=== PATIENT | female | born 1985 ===

== ENCOUNTER 2016-02-29 21:35 | Emergency (ER) | payer SELFPAY ==
[2016-02-29] MEDS ORDERED: IOPAMIDOL 370 (76%) 100 ML VIAL IV ONE (21:36)
[2016-02-29 22:12] LABS: SPECIFIC GRAVITY 1.015 (1.001-1.030); URINE BILIRUBIN NEGATIVE (NEGATIVE); URINE BLOOD TRACE (NEGATIVE); URINE COLOR LIGHT YELLOW; URINE GLUCOSE (UA) NEGATIVE (NEGATIVE); URINE LEUKOCYTE ESTERASE TRACE (NEGATIVE); URINE NITRITE NEGATIVE (NEGATIVE); URINE PROTEIN NEGATIVE (NEGATIVE); URINE UROBILINOGEN NORMAL (0-1 mg/dl)
[2016-02-29 22:13] LABS: URINE APPEARANCE HAZY
[2016-02-29 22:14] LABS: HCG,QUALITATIVE URINE NEGATIVE
[2016-02-29 22:20] LABS: URINE RBC 0-1 /hpf
[2016-02-29 22:21] LABS: URINE BACTERIA FEW
[2016-02-29 22:30] LABS: ABSOLUTE NEUTROPHIL COUNT 3.9 K/mm3 (1.8-7.7); BASO # 0.1 K/mm3 (0.0-0.2); BASO % 0.5 % (0.2-1.0); EOS # 0.2 (0.0-0.5); EOS % 2.6 % (0.9-2.9); HEMATOCRIT 37.5 % (37.0-47.0); HEMOGLOBIN 12.4 gm/l (12.0-16.0); IMM NEUT% 0.2 % (0-1); LYMPH # 4.6 (1.0-4.8); LYMPH % 49.7 % (15-45); MEAN CELL VOLUME 89.7 fl (81.0-99.0); MEAN CORPUSCULAR HEMOGLOBIN 29.7 pg (27.0-31.0); MEAN CORPUSCULAR HGB CONC 33.1 g/dl (33.0-37.0); MEAN PLATELET VOLUME 10.2 fl (7.4-10.4); MONO # 0.5 (0.0-0.8); MONO % 4.8 % (4-12); NEUT % 42.2 % (43-75); PLATELET COUNT 280 K/mm3 (130-400)
[2016-02-29 22:52] LABS: ALB/GLOB RATIO 1.3 (>1.0); ALBUMIN 4.3 gm/dL (3.5-5.7); CALCIUM 9.2 mg/dL (8.6-10.3)
--- NOTE | 2016-03-01 08:30 | CT ---
CT ABDOMEN AND PELVIS WITH CONTRAST HISTORY: Abdominal pain x15 days. TECHNIQUE: Following intravenous administration of 100cc of Isovue-370, contiguous axial images were acquired from the lung bases to the ischial tuberosities. Oral contrast was not administered. COMPARISON:None. FINDINGS: LUNG BASES: Minor atelectatic change. No airspace consolidation or pleural effusion. LIVER: No focal lesion. SPLEEN: No focal lesion. PANCREAS: No focal lesion. ADRENAL GLANDS: No mass effect. KIDNEYS: No focal lesion. No collecting system dilatation. GALLBLADDER: Present. BOWEL: . Bowel malrotation, small bowel seen on the right side of the abdomen with the cecum at the left lower quadrant. There is moderate colonic fecal loading. Limited evaluation of portions of the colon due to decompression. No abnormal small bowel dilatation. APPENDIX: Normal gas-filled appendix. PELVIC ORGANS: No gross mass effect. Prominence of the left ovarian vein asymmetric prominence of left-sided vasculature. FREE FLUID: No gross free fluid identified. ABDOMINOPELVIC LYMPH NODES: A few perigastric lymph nodes are identified which are nonenlarged measuring up to 7 mm in size. ABDOMINAL AORTA: Normal caliber. OSSEOUS STRUCTURES: No grossly destructive lesions. IMPRESSION: 1. Noninflammatory, nonobstructive appearance of bowel with findings of malrotation. Normal appendix. 2. No free fluid or dominant adnexal lesion. 3. Prominence of the left ovarian vein and pelvic vasculature, changes of pelvic congestion possible. Preliminary report relayed to the Emergency Medicine medical service by Dr. Landaverde on 02/29/2016 at 2302 hours
== END 2016-03-01 00:33 | disposition home or self-care (01) ==
LOC: ED 21:35
DX: Q43.3 Congenital malformations of intestinal fixation (principal); R10.9 Unspecified abdominal pain; R11.2 Nausea with vomiting, unspecified
CPT/HCPCS: 83690; 81025; 85025; 87086; 80053; 81001; 74177; 99283; 99284; Q9967